=== PATIENT | female | born 1935 | race Caucasian/White ===

== ENCOUNTER → 2017-06-25 | Outpatient (CLI) | payer MEDICARE, OTHER ==
[~2017-06-25] MED LIST: AMIO200 PO; ASPI325 PO; Amiodarone HCl200 MG PO; Aspirin EC81 MG PO; CENTRUM SILVER1 EAC3 PO; Colace100 MG PO; Ester-C 500 MG1 EACH PO; FURO20 PO; LOSA50 PO; METO25ER PO; Norco 5-325 Ta1 EACH PO; OMEP20ER PO; PARO20 PO; SPIHYD PO; Toprol Xl50 MG PO; VITAMIN D32000 UNIT PO; XARELTO20 MG PO
[2017-06-25 19:24] LABS: BASOPHILS ABSOLUTE AUTO 0.03 K/mm3 (0.00-0.23); BASOPHILS PERCENT AUTO 1 % (0-2); EOSINOPHILS PERCENT AUTO 3 % (0-6); Hemoglobin 14.1 g/dL (11.5-16.0); IMMATURE GRAN ABSOLUTE AUTO 0.01 K/mm3 (0.00-0.10); IMMATURE GRAN PERCENT AUTO 0 % (0-1); LYMPHOCYTES ABSOLUTE AUTO 1.39 K/mm3 (0.84-5.20); LYMPHOCYTES PERCENT AUTO 21 % (21-46); MONOCYTES ABSOLUTE AUTO 0.36 K/mm3 (0.16-1.47); MONOCYTES PERCENT AUTO 5 % (4-13); Mean Corpuscular HGB 31.7 pg (26.0-34.0); Mean Corpuscular HGB Conc 33.6 g/dL (31.5-36.5); Mean Corpuscular Volume 94 fL (80-100); Mean Platelet Volume 10.9 fL (9.1-12.4); NEUTROPHILS ABSOLUTE AUTO 4.67 K/mm3 (1.96-9.15); NEUTROPHILS PERCENT AUTO 70 % (41-73); Platelet Count 190 K/mm3 (150-400); RDW Coefficient Variation 12.9 % (11.7-14.2); RDW Standard Deviation 44.4 fL (35.1-46.3); Red Blood Cell Count 4.45 M/mm3 (3.80-5.20); White Blood Cell Count 6.66 K/mm3 (4.00-11.30)
[2017-06-25 19:37] LABS: Alanine Aminotransfer (ALT/SGP 13 U/L (12-78); Albumin, Blood 3.6 g/dL (3.4-5.0); Alk Phos 90 U/L (50-136); Anion Gap 5 mmol/L (6-16); Aspartate Aminotrans (AST/SGOT 32 U/L (12-37); Bilirubin, Total 0.7 mg/dL (0.1-1.0); Blood Urea Nitrogen 17 mg/dL (8-24); Bun/Creatinine Ratio 25.3 (12.0-20.0); CO2, Blood 27 mmol/L (21-32); Calcium, Blood 9.2 mg/dL (8.5-10.1); Chloride, Blood 107 mmol/L (98-108); Creatinine, Blood 0.67 mg/dL (0.40-1.00); Globulin, Blood 3.5 g/dL (2.2-4.0); Glomerular Filtration Rate >60 (60-); Glucose, Blood 100 mg/dL (70-99); Potassium, Blood 4.3 mmol/L (3.5-5.5); Sodium, Blood 139 mmol/L (136-145); Total Protein, Blood 7.1 g/dL (6.4-8.2)
== END | disposition home or self-care (01) ==
LOC: LAB 14:33
PROVIDERS: Physician Assistant
DX: I48.0 Paroxysmal atrial fibrillation (principal); I10 Essential (primary) hypertension
CPT/HCPCS: 80053; 85025

== ENCOUNTER → 2017-08-25 | Outpatient (CLI) | payer MEDICARE, OTHER | END | disposition home or self-care (01) | LOC: PLD 08:11 → LAB SHORT 08:11 | DX: L57.0 Actinic keratosis (principal) | CPT/HCPCS: 88305 ==

== ENCOUNTER 2018-07-05 07:35 | Day surgery (SDC) | payer MEDICARE, OTHER ==
[~2018-07-05 07:35] MED LIST changes: +Bactrim Ds Tab1 EACH PO; +CHOL10002 PO; +DIGOX250 MCG PO; +ELIQUIS5 MG PO; +METO50ER PO
--- NOTE | 2018-07-05 08:56 | NUR ---
Ambulatory in Day Surgery. History, Chart, Medications and Allergies reviewed before start of procedure. Lungs clear T/O to Auscultation. Patient confirms NPO status and agrees with scheduled surgery. Pre-Op teaching done. Pt verbalizes understanding. Patient States Post-Procedure ride home has been arranged.
--- NOTE | 2018-07-05 09:03 | NUR ---
07/05/18 0903 Beni Lamas PATIENT DETERMINED TO BE ASA APPROPRIATE FOR PROPOFOL SEDATION PRIOR TO START OF PROCEDURE BY . 3-LEAD EKG REVIEWED WITH PHYSICIAN PRIOR TO START OF PROCEDURE.PATIENT CONFIRMS NPO STATUS AND AGREES WITH SCHEDULED PROCEDURE.History, Chart, Medications and Allergies reviewed before start of procedure.MONITOR INTACT WITH CONTINUOUS PULSE OXIMETRY AND INTERMITTENT BP.O2 VIA N/C INTACT THROUGHOUT SEDATION/PROCEDURE.HURRICAINE SPRAY TO OROPHARYX.Bite Block PlacedN
--- NOTE | 2018-07-05 10:33 | NUR ---
AT 1020 ASSUMED CARE FROM LEEANNA PARK. VSS PATIENT STATES SHE FEELS GROGGY. WANTED FRIENDS TO KNOW HOW SHE IS DOING STAFF INFORMED AND OFFERED AND STARTED PATIENT ON JUICE OF CHOICE
--- NOTE | 2018-07-05 10:48 | NUR ---
discharged witha all blonings and discharge instructions after iv dc and discharge instructions gone over with.
--- NOTE | 2018-07-09 10:27 | NUR ---
PT CALLED [facility] DEPARTMENT, THIS RN ANSWERED. PT VOICED CONCERN HER STOOL HAS BEEN BLACK FOR THE LAST FEW DAYS. STATES SHE HAD EGD AND COLONOSCOPY WITH DR ESPINOSA ThursdayJun. SHE CALLED DR VIDES AND HE IS OUT OF TOWN UNTIL THE AND HER PCP IS ON VACATION. PT STATES SHE DOES FEEL LIGHTHEADED AND HER SYSTOLIC BP IS 100. PT STATES SHE HAS AN APPOINTMENT TODAY WITH HER WRAPPER OFF FOR A SKIN CANCER REMOVAL PROCEDURE. STATES THEY CAN TAKE HER BP THERE. I ENCOURAGED PT TO DRINK FLUIDS AND IF SYMPTOMS WORSEN TO GO TO THE ER. PT DENIES SEEING ANY MAROON/RED BLOOD. I ASKED IF PT IS ON BLOOD THINNERS AND SHE TOLD ME YES, SHE IS ON ELIQUIST AND DR ESPINOSA SAID IT WAS OKAY TO RESUME AFTER HER PROCEDURE ON THURSDAY. STATES SHE NOW FEELS BETTER KNOWING THAT IS PROBABLY WHY SHE IS SEEING BLACK STOOL MULTIPLE UPPER ENDOSCOPY BIOSPIES WERE TAKEN, ONE POLYP REMOVED IN COLON. PT STATES "MAYBE I'LL HOLD OFF ON THE ELIQUIST FOR A DAY OR TWO." AGAIN, ENCOURAGED PT TO SEEK MEDICAL ATTENTION IF SYMPTOMS WORSEN.
== END 2018-07-05 22:59 | disposition home or self-care (01) ==
LOC: ORSCMMR 07:35 → ORD 09:00 → ORSCMMR 09:00
PROVIDERS: Internal Medicine Gastroenterology
PROC: 0DB68ZX Excision of Stomach, Via Natural or Artificial Opening Endoscopic, Diagnostic (ICD-10-PCS; principal; 2018-07-05 09:00)
PROC: 0DB48ZX Excision of Esophagogastric Junction, Via Natural or Artificial Opening Endoscopic, Diagnostic (ICD-10-PCS; principal; 2018-07-05 09:00)
PROC: 0DBN8ZX Excision of Sigmoid Colon, Via Natural or Artificial Opening Endoscopic, Diagnostic (ICD-10-PCS; principal; 2018-07-05 09:00)
DX: K29.70 Gastritis, unspecified, without bleeding (principal); R63.4 Abnormal weight loss; K63.5 Polyp of colon; K57.30 Diverticulosis of large intestine without perforation or abscess without bleeding; Z86.010 Personal history of colon polyps; I48.0 Paroxysmal atrial fibrillation; Z79.01 Long term (current) use of anticoagulants; Z79.899 Other long term (current) drug therapy
CPT/HCPCS: 88305; 88341; 88342; J7120

== ENCOUNTER 2018-07-12 16:48 | Observation (INO) | payer MEDICARE, OTHER ==
[~2018-07-12] VITALS: Ht 157.5 cm; Wt 54.1 kg
[2018-07-12 17:29] LABS: Source, Urine Clean Catch
[2018-07-12 17:32] LABS: BASOPHILS ABSOLUTE AUTO 0.04 K/mm3 (0.00-0.23); BASOPHILS PERCENT AUTO 1 % (0-2); EOSINOPHILS ABSOLUTE AUTO 0.18 K/mm3 (0.00-0.68); EOSINOPHILS PERCENT AUTO 3 % (0-6); Hemoglobin 11.4 g/dL (11.5-16.0); IMMATURE GRAN ABSOLUTE AUTO 0.02 K/mm3 (0.00-0.10); IMMATURE GRAN PERCENT AUTO 0 % (0-1); LYMPHOCYTES ABSOLUTE AUTO 1.97 K/mm3 (0.84-5.20); LYMPHOCYTES PERCENT AUTO 30 % (21-46); MONOCYTES ABSOLUTE AUTO 0.49 K/mm3 (0.16-1.47); MONOCYTES PERCENT AUTO 7 % (4-13); Mean Corpuscular HGB 32.7 pg (26.0-34.0); Mean Corpuscular HGB Conc 33.5 g/dL (31.5-36.5); Mean Corpuscular Volume 97 fL (80-100); Mean Platelet Volume 10.1 fL (9.1-12.4); NEUTROPHILS ABSOLUTE AUTO 3.91 K/mm3 (1.96-9.15); NEUTROPHILS PERCENT AUTO 59 % (41-73); Platelet Count 252 K/mm3 (150-400); RDW Coefficient Variation 13.4 % (11.7-14.2); RDW Standard Deviation 46.6 fL (35.1-46.3); Red Blood Cell Count 3.49 M/mm3 (3.80-5.20); White Blood Cell Count 6.61 K/mm3 (4.00-11.30)
[2018-07-12 17:37] LABS: Appearance, Urine Clear (Clear); Bilirubin, Urine Neg (Neg); Blood, Urine 1+ (Neg); Color, Urine Yellow (P-Yellow); Glucose Qualitative, Urine Neg (Neg); Ketones, Urine Neg (Neg); Leukocyte Esterase, Urine 2+ (Neg); Nitrite, Urine Neg (Neg); Protein, Urine Neg (Neg); Urobilinogen, Urine NORM (Normal)
[2018-07-12 17:52] LABS: Red Blood Cells, Urine 0-2 /hpf (0-2); Squamous Epithelial Cells Rare /hpf (Few)
[2018-07-12 17:53] LABS: Bacteria Not Seen /hpf
[2018-07-12 18:38] LABS: Alanine Aminotransfer (ALT/SGP 23 U/L (12-78); Albumin, Blood 3.5 g/dL (3.4-5.0); Alk Phos 94 U/L (50-136); Anion Gap 6 mmol/L (6-16); Aspartate Aminotrans (AST/SGOT 44 U/L (12-37); Bilirubin, Total 0.5 mg/dL (0.1-1.0); Blood Urea Nitrogen 16 mg/dL (8-24); Bun/Creatinine Ratio 17.5 (12.0-20.0); CO2, Blood 29 mmol/L (21-32); Chloride, Blood 102 mmol/L (98-108); Creatinine, Blood 0.91 mg/dL (0.40-1.00); Globulin, Blood 3.4 g/dL (2.2-4.0); Glomerular Filtration Rate >60 (60-); Glucose, Blood 123 mg/dL (70-99); Potassium, Blood 3.6 mmol/L (3.5-5.5); Sodium, Blood 137 mmol/L (136-145); Total Protein, Blood 6.9 g/dL (6.4-8.2)
[2018-07-12 22:27] LABS: Percent Saturation 17.5 % (15.0-50.0)
[2018-07-13 05:02] LABS: BASOPHILS ABSOLUTE AUTO 0.03 K/mm3 (0.00-0.23); BASOPHILS PERCENT AUTO 1 % (0-2); EOSINOPHILS ABSOLUTE AUTO 0.11 K/mm3 (0.00-0.68); EOSINOPHILS PERCENT AUTO 2 % (0-6); Hematocrit 29.4 % (33.0-51.0); Hemoglobin 9.7 g/dL (11.5-16.0); IMMATURE GRAN ABSOLUTE AUTO 0.01 K/mm3 (0.00-0.10); IMMATURE GRAN PERCENT AUTO 0 % (0-1); LYMPHOCYTES ABSOLUTE AUTO 1.86 K/mm3 (0.84-5.20); LYMPHOCYTES PERCENT AUTO 36 % (21-46); MONOCYTES ABSOLUTE AUTO 0.39 K/mm3 (0.16-1.47); MONOCYTES PERCENT AUTO 8 % (4-13); Mean Corpuscular HGB 31.5 pg (26.0-34.0); Mean Corpuscular Volume 96 fL (80-100); Mean Platelet Volume 10.1 fL (9.1-12.4); NEUTROPHILS ABSOLUTE AUTO 2.74 K/mm3 (1.96-9.15); NEUTROPHILS PERCENT AUTO 53 % (41-73); Platelet Count 165 K/mm3 (150-400); RDW Coefficient Variation 13.3 % (11.7-14.2); Red Blood Cell Count 3.08 M/mm3 (3.80-5.20); White Blood Cell Count 5.14 K/mm3 (4.00-11.30)
--- NOTE | 2018-07-13 05:37 | NUR ---
SHIFT SUMMARY 0035 RECEIVED PT TO RM 306 VIA GURNEY FROM ER. A&O, VERY PLEASANT. ABLE TO TX SELF TO BED. PT INDEPENDANT TO BTHRM UNTIL SCD'S PLACED AND IVF'S STARTED. PT CALLS FOR ASSIST D/T THOSE. PT ADMITTED FOR MELENA. RECEIVED REPORT FROM HAROLDO PARK, PT HAD A SCOPE LAST WEEK AND THEN HAD 3 BLACK STOOLS. PT REPORTED THAT SHE HAS BEEN CONSTIPATED SINCE, EVEN THOUGH TAKING MIRALAX 3 DAYS IN A ROW. PT WITH HX OF A-FIB, ON ELIQUIS; CHF, BREAST CA, AND RECURRENT UTI'S. GI CONSULT CALLED TO DR BURKS'S ANS. PT HAS BEEN UP TO BTHRM TO VOID A COUPLE OF TIMES. CALLS APPROPRIATELY. NPO PER ORDERS.
--- NOTE | 2018-07-13 12:02 | NUR ---
Pt gave me permission to assist with her care tomorrow on 07/14/2018.
--- NOTE | 2018-07-13 14:37 | NUR ---
PT GAVE PERMISSION FOR ME TO HELP TAKE CARE OF HER TOMORROW FROM 1-6 PM.
--- NOTE | 2018-07-13 15:38 | NUR ---
SHIFT SUMMARY PATIENT A&O X4, SBA TO BATHROOM. DENIES ANY PAIN, NAUSEA, OR SOB THIS SHIFT. HAS NOT HAD A BM SINCE ADMIT, DENIES ANY BLEEDING WITH URINATION. CLEAR LIQUIDS THIS AM, NPO SINCE 1200 FOR A SCHEDULED ENDOSCOPY. FAMILY IS AT THE BEDSIDE. DAY SURGERY COMING TO GET PATIENT FOR PROCEDURE NOW. P/T EVALUATED TODAY, PATIENT IS A SBA W/GB AND WALKER. PATIENT REFUSING TO USE WALKER TO GET UP. RN WILL CONTINUE TO EDUCATE PATIENT ON SAFETY AND FALL PREVENTION. BED IN LOWEST POSITION, CALL LIGHT IS WITHIN REACH. NO ACUTE CHANGES. RN WILL CONTINUE TO MONITOR.
--- NOTE | 2018-07-13 15:42 | NUR ---
INTO [facility] VIA [facility] [employer]. HISTORY AND ALLERGIES REVIEWED. NPO STATUS CONFIRMED. LUNGS WITH BIBASILAR CRACKLES. PT DENIES SOB-SATS>90% ON RA. NO ELIQUIS X 3 DAYS.
--- NOTE | 2018-07-13 16:07 | NUR ---
07/13/18 1607 Ronald Garzon PATIENT DETERMINED TO BE ASA APPROPRIATE FOR PROPOFOL SEDATION PRIOR TO START OF PROCEDURE BY DR. Dang Block Placed. 3-LEAD EKG REVIEWED WITH PHYSICIAN PRIOR TO START OF PROCEDURE.Patient to ENDO 1History, Chart, Medications and Allergies reviewed before start of procedure. MONITOR INTACT WITH CONTINUOUS PULSE OXIMETRY AND INTERMITTENT BP.O2 VIA N/C INTACT THROUGHOUT SEDATION/PROCEDURE.
--- NOTE | 2018-07-13 18:06 | NUR ---
Yolis conversation with Randy. She has a strong santosh that brings her peace. She tells me she is awaiting test this afternoon and is hoping to go home afterwards. She is trying to not worry, but admits she is "a little fearful." We spoke at length about her marriage and homelife. Randy responded well to theraputic listening, residential treatment counselor, and prayer. We had an easy rapport and I will remain available.
--- NOTE | 2018-07-14 06:13 | NUR ---
SHIFT SUMMARY PT A&O, RESTING QUIETLY AWAKE DURING SHIFT REPORT LAST NOC. PT HAD RETURNED FOR SCOPE PRIOR TO THE START OF NOC SHIFT. DR ESPINOZANG HER TO SEE PT AT START OF SHIFT. DISCUSSED DIET AND STARTING BOWEL CARE. DR BURKS NOTIFIED FOR CLARIFICATION OF ORDERS. PT TOLERATED CLEAR LIQUID DIET LAST NIGHT AND WANTED SOLID FOOD. SETTLED FOR SEVERAL JELLO AND WATER. DECLINED ANYTHING ELSE. PT WOKE THIS AM FEELING WELL. REALLY WANTS TO GET HOME TO HER . NO C/O PAIN OR NAUSEA. INDEPENDANT TO BTHRM. CALL LT IN REACH. ABLE TO MAKE NEEDS KNOWN.
[2018-07-14 08:38] LABS: Hematocrit 33.6 % (33.0-51.0); Hemoglobin 11.3 g/dL (11.5-16.0)
--- NOTE | 2018-07-14 09:24 | NUR ---
PATIENT WAS OFFERED A SHOWER BUT REFUSED DUE TO BEING DISCHARGED AND WANTED TOT KLARISSA ONE AT HOME.
[2018-07-14] MEDS ORDERED: DOCU100 PO (11:53)
[2018-07-14] MEDS ORDERED: GAVILAX17 GM PO (11:54)
[2018-07-14] MEDS ORDERED: Omeprazole20 M1 PO (11:56)
--- NOTE | 2018-07-14 13:25 | NUR ---
Randy was surrounded by family and friend. She is happy to be going home today and "they didn't find anything too troubling." Provided prayer for continued health.
--- NOTE | 2018-07-14 15:21 | NUR ---
DISCHARGE SUMMARY PATIENT A&O, INDEPENDENT IN THE ROOM. DISCHARGE INFORMATION REVIEWED INCLUDING FOLLOW UP APPOINTMENTS, MEDICATIONS, AND PATIENT EDUCATION. MEDICATIONS FAXED TO [facility]. IV D/C, WNL. PATIENT WALKED OUT, ACCOMPANIED BY HER FRIEND AND . ALL BELONGINGS IN HAND, STEADY ON HER FEET. RN ESCORTED THEM OUT.
[2018-07-15] MEDS ORDERED: HYDCHL12.5 PO (07:33)
[2018-07-15] MEDS ORDERED: ACID REDUCER20 MG PO (07:34)
[2018-07-15] MEDS ORDERED: Bactrim Ds Tab1 EACH PO (07:48)
== END 2018-07-14 12:27 | disposition home or self-care (01) ==
LOC: ER 16:48 → MEDS 16:49 → ENPENDDIS 07-14 11:02 → MEDS 07-14 12:27
PROVIDERS: Internal Medicine; Physician Assistant; Student in an Organized Health Care Education/Training Program; ADMIT Hospitalist
PROC: 0DJD8ZZ Inspection of Lower Intestinal Tract, Via Natural or Artificial Opening Endoscopic (ICD-10-PCS; principal; 2018-07-13 17:15)
PROC: 0W3P8ZZ Control Bleeding in Gastrointestinal Tract, Via Natural or Artificial Opening Endoscopic (ICD-10-PCS; principal; 2018-07-13 17:15)
DX: K29.40 Chronic atrophic gastritis without bleeding (principal); K44.9 Diaphragmatic hernia without obstruction or gangrene; K25.9 Gastric ulcer, unspecified as acute or chronic, without hemorrhage or perforation; K92.1 Melena; I48.2 Chronic atrial fibrillation; I50.32 Chronic diastolic (congestive) heart failure; N39.0 Urinary tract infection, site not specified; D64.9 Anemia, unspecified; F32.9 Major depressive disorder, single episode, unspecified; R15.0 Incomplete defecation; Z85.3 Personal history of malignant neoplasm of breast; Z88.5 Allergy status to narcotic agent; Z79.899 Other long term (current) drug therapy
CPT/HCPCS: 36415; 80053; 81001; 82272; 82728; 83540; 83550; 83690; 85014; 85018; 85025; 86900; 86901; 87086; 96372; 96374; 96376; 97110; 97116; 97162; 99285-25; C9113; G0378; J7030; J7120

== ENCOUNTER 2018-07-15 06:41 | Emergency (ER) | payer MEDICARE, OTHER ==
[~2018-07-15] VITALS: Ht 160 cm; Wt 52.6 kg
[~2018-07-15 06:41] MED LIST changes: +DOCU100 PO; +GAVILAX17 GM PO; +Omeprazole20 M1 PO
[2018-07-15 07:04] LABS: BASOPHILS ABSOLUTE AUTO 0.03 K/mm3 (0.00-0.23); BASOPHILS PERCENT AUTO 0 % (0-2); EOSINOPHILS ABSOLUTE AUTO 0.04 K/mm3 (0.00-0.68); EOSINOPHILS PERCENT AUTO 1 % (0-6); Hemoglobin 12.6 g/dL (11.5-16.0); IMMATURE GRAN ABSOLUTE AUTO 0.05 K/mm3 (0.00-0.10); IMMATURE GRAN PERCENT AUTO 1 % (0-1); LYMPHOCYTES ABSOLUTE AUTO 1.03 K/mm3 (0.84-5.20); LYMPHOCYTES PERCENT AUTO 12 % (21-46); MONOCYTES ABSOLUTE AUTO 0.33 K/mm3 (0.16-1.47); MONOCYTES PERCENT AUTO 4 % (4-13); Mean Corpuscular HGB 32.3 pg (26.0-34.0); Mean Corpuscular HGB Conc 33.2 g/dL (31.5-36.5); Mean Corpuscular Volume 97 fL (80-100); Mean Platelet Volume 9.8 fL (9.1-12.4); NEUTROPHILS ABSOLUTE AUTO 7.23 K/mm3 (1.96-9.15); NEUTROPHILS PERCENT AUTO 83 % (41-73); Platelet Count 248 K/mm3 (150-400); RDW Coefficient Variation 13.7 % (11.7-14.2); RDW Standard Deviation 48.2 fL (35.1-46.3); White Blood Cell Count 8.71 K/mm3 (4.00-11.30)
[2018-07-15 07:10] LABS: Calcium, Ionized (POC) 1.13 mmol/L (1.10-1.46); Chloride (POC) 102 mmol/L (98-108); Creatinine (POC) 0.7 mg/dL (0.6-1.0); Glucose (ISTAT POC) 148 mg/dL (70-99); Hemoglobin (POC) 11.6 g/dL (12.0-16.0); Potassium (POC) 3.9 mmol/L (3.5-5.5); Sodium (POC) 143 mmol/L (135-148); Total CO2 (POC) 27 mmol/L (21-32)
[2018-07-15 07:17] LABS: International Normalized Ratio 1.1; Prothrombin Time Results 11.6 Sec (9.7-11.5)
[2018-07-15 07:27] LABS: Alanine Aminotransfer (ALT/SGP 16 U/L (12-78); Albumin, Blood 3.7 g/dL (3.4-5.0); Albumin/Globulin Ratio 1.1 (0.8-1.8); Alk Phos 85 U/L (50-136); Anion Gap 8 mmol/L (6-16); Aspartate Aminotrans (AST/SGOT 34 U/L (12-37); Bilirubin, Total 0.5 mg/dL (0.1-1.0); Blood Urea Nitrogen 13 mg/dL (8-24); Bun/Creatinine Ratio 17.5 (12.0-20.0); CO2, Blood 27 mmol/L (21-32); Calcium, Blood 8.5 mg/dL (8.5-10.1); Chloride, Blood 108 mmol/L (98-108); Creatinine, Blood 0.74 mg/dL (0.40-1.00); Globulin, Blood 3.4 g/dL (2.2-4.0); Glomerular Filtration Rate >60 (60-); Glucose, Blood 147 mg/dL (70-99); Potassium, Blood 3.8 mmol/L (3.5-5.5); Sodium, Blood 143 mmol/L (136-145); Total Protein, Blood 7.1 g/dL (6.4-8.2); Troponin I <0.015 ng/mL (0.000-0.040)
[2018-07-15] MEDS ORDERED: HYDCHL12.5 PO (07:33)
[2018-07-15] MEDS ORDERED: ACID REDUCER20 MG PO (07:34)
[2018-07-15] MEDS ORDERED: Bactrim Ds Tab1 EACH PO (07:48)
== END 2018-07-15 08:36 | disposition short-term general hospital (02) ==
LOC: ER 06:41
PROVIDERS: Emergency Medicine
DX: I63.9 Cerebral infarction, unspecified (principal); I10 Essential (primary) hypertension; I48.91 Unspecified atrial fibrillation; Z88.5 Allergy status to narcotic agent; Z79.899 Other long term (current) drug therapy; Z79.01 Long term (current) use of anticoagulants
CPT/HCPCS: 36415; 70450; 70496; 80047; 80053; 84484; 85014; 85025; 85610; 85730; 93005; 93010; 99285-25; Q9967

== ENCOUNTER 2018-10-11 13:43 | Inpatient (IN) | payer MEDICARE, OTHER ==
[~2018-10-11] VITALS: Ht 162.6 cm; Wt 51.2 kg
[~2018-10-11 13:43] MED LIST changes: +ACET500ER; +ACID REDUCER20 MG PO; +ACYC800 PO; +ATOR10 PO; +CLOP75 PO; +DIGOX125 MCG PO; +FAMO20 PO; +HYDCHL12.5 PO
[2018-10-11 14:46] LABS: BASOPHILS ABSOLUTE AUTO 0.04 K/mm3 (0.00-0.23); BASOPHILS PERCENT AUTO 0 % (0-2); EOSINOPHILS PERCENT AUTO 3 % (0-6); Hematocrit 40.1 % (33.0-51.0); Hemoglobin 13.3 g/dL (11.5-16.0); IMMATURE GRAN ABSOLUTE AUTO 0.03 K/mm3 (0.00-0.10); IMMATURE GRAN PERCENT AUTO 0 % (0-1); LYMPHOCYTES ABSOLUTE AUTO 1.52 K/mm3 (0.84-5.20); LYMPHOCYTES PERCENT AUTO 17 % (21-46); MONOCYTES ABSOLUTE AUTO 0.69 K/mm3 (0.16-1.47); MONOCYTES PERCENT AUTO 8 % (4-13); Mean Corpuscular HGB 31.2 pg (26.0-34.0); Mean Corpuscular HGB Conc 33.2 g/dL (31.5-36.5); Mean Corpuscular Volume 94 fL (80-100); NEUTROPHILS PERCENT AUTO 71 % (41-73); Platelet Count 300 K/mm3 (150-400); RDW Coefficient Variation 13.2 % (11.7-14.2); RDW Standard Deviation 45.1 fL (35.1-46.3); Red Blood Cell Count 4.26 M/mm3 (3.80-5.20); White Blood Cell Count 8.98 K/mm3 (4.00-11.30)
[2018-10-11 14:59] LABS: International Normalized Ratio 1.15
[2018-10-11 15:04] LABS: Alanine Aminotransfer (ALT/SGP 23 U/L (12-78); Albumin, Blood 3.1 g/dL (3.4-5.0); Albumin/Globulin Ratio 0.8 (0.8-1.8); Alk Phos 122 U/L (50-136); Anion Gap 7 mmol/L (6-16); Aspartate Aminotrans (AST/SGOT 49 U/L (12-37); Bilirubin, Total 0.8 mg/dL (0.1-1.0); Blood Urea Nitrogen 14 mg/dL (8-24); Bun/Creatinine Ratio 26.8 (12.0-20.0); CO2, Blood 29 mmol/L (21-32); Calcium, Blood 9.2 mg/dL (8.5-10.1); Chloride, Blood 101 mmol/L (98-108); Creatinine, Blood 0.52 mg/dL (0.40-1.00); Globulin, Blood 4.1 g/dL (2.2-4.0); Glomerular Filtration Rate >60 (60-); Glucose, Blood 116 mg/dL (70-99); Potassium, Blood 3.4 mmol/L (3.5-5.5); Sodium, Blood 137 mmol/L (136-145); Total Protein, Blood 7.2 g/dL (6.4-8.2)
[2018-10-11] MEDS ORDERED: ELIQUIS5 MG PO (15:49)
[2018-10-11] MEDS ORDERED: CRANBERRY450 MG PO (17:01)
[2018-10-11] MEDS ORDERED: ESTRADIOL VAG (17:05)
[2018-10-11] MEDS ORDERED: Ferrous Sulfat325 M2 PO (17:06)
[2018-10-11] MEDS ORDERED: THERA1 EACH PO (17:07)
[2018-10-11] MEDS ORDERED: Florastor250 MG PO (17:07)
[2018-10-11] MEDS ORDERED: Senna-Docusate1 EACH PO (17:08)
[2018-10-11] MEDS ORDERED: ACET325 PO (17:09)
[2018-10-11] MEDS ORDERED: HYDRA25 PO (17:10)
[2018-10-11] MEDS ORDERED: BISA10S PR (17:11)
[2018-10-11] MEDS ORDERED: CVS DISPOSABLE399 ML PR (17:11)
[2018-10-11] MEDS ORDERED: Milk Of Ma400 MG/5 M PO (17:12)
[2018-10-11] MEDS ORDERED: MELA3 PO (17:18)
--- NOTE | 2018-10-11 19:20 | NUR ---
Initial Visit: Palliative Care Consult for Advanced Care Planning. Pt is resting in bed and is unresponsive. Pt's Mustapha, Grandson Marek (KASEY), and Coery's Mone are present during visit. Pt appears comfortable with no signs of distress at this time. Engaged in therapeutic conversation regarding Advanced Care Planning. Listened as Marek expressed frustrations regarding care Pt received from SNF. Marek reports this is Pt's seconds stroke. Marek reports Pt's rehabilitation was going well until this hospitalization. Pt was improving with her mobility but was still requiring assistance with ambulation, bathing, and dressing. She was also receiving therapy for her swallowing difficulty. Marek reports Pt is of Cheondoism santosh and lives at home with her . Marek expresses concerns regarding no family or friends having the ability to help with care for Pt and Pt's . Marek reports Pt's Mustapha is also having health issues. Mustapha is a and served in [place]. Marek would like assistance with placing Pt and Pt's in the same facility. Marek also completes a new POLST. Wishes of family are for Pt to be a DNR, limited treatment, and no tube feedings. Following scores are based off Pt's current condition not baseline PPS 10% Karnofsky 30% ADLs 6/ Spoke with Pt's bedside nurse Cholo regarding new POLST and family concerns. Cholo reports no other concerns at this time. Plan: Placed social service consult regarding assistance with placement for both Pt and . Left message on resident caregiver voicemail regarding family concerns. Faxed copy of POA to medical records. Will obtain copy of new POLST upon hospitalist signature. Will remain available
--- NOTE | 2018-10-11 19:45 | NUR ---
SHIFT SUMMARY: PT WAS ABLE TO RESPOND TO PAINFUL STIMULI WITH SPONTANIOUS EYE MOVEMENT. SHE IS INCONT W/ATTENDS IN PLACE. CODE STATUS CLARIFIED WITH AND FAMILY. DNR BAND PLACED ON R WRIST. PALLIATIVE CARE TO THE ROOM, NEW POLST FILLED OUT. POLST NEEDS TO BE SIGNED BY PHYSICIAN. NOC RN NOTIFIED. NO S/SX OF PAIN NOTED AT THIS TIME. RESP E/U.
[2018-10-12 04:48] LABS: Hematocrit 37.7 % (33.0-51.0); Hemoglobin 12.3 g/dL (11.5-16.0); Mean Corpuscular HGB 30.7 pg (26.0-34.0); Mean Corpuscular HGB Conc 32.6 g/dL (31.5-36.5); Mean Corpuscular Volume 94 fL (80-100); Mean Platelet Volume 9.8 fL (9.1-12.4); Platelet Count 245 K/mm3 (150-400); RDW Coefficient Variation 12.9 % (11.7-14.2); RDW Standard Deviation 44.8 fL (35.1-46.3); Red Blood Cell Count 4.01 M/mm3 (3.80-5.20); White Blood Cell Count 8.48 K/mm3 (4.00-11.30)
[2018-10-12 05:07] LABS: Anion Gap 6 mmol/L (6-16); Blood Urea Nitrogen 14 mg/dL (8-24); Bun/Creatinine Ratio 24.3 (12.0-20.0); CHOL/HDL RATIO 2.9; CO2, Blood 31 mmol/L (21-32); Calcium, Blood 9.1 mg/dL (8.5-10.1); Chloride, Blood 103 mmol/L (98-108); Cholesterol 102 mg/dL (50-200); Creatinine, Blood 0.58 mg/dL (0.40-1.00); Glomerular Filtration Rate >60 (60-); Glucose, Blood 99 mg/dL (70-99); HDL Cholesterol 35 mg/dL (>39); LDL/HDL RATIO 1.3; Low Density Lipoprotein Chol 45 mg/dL (0-110); Potassium, Blood 3.1 mmol/L (3.5-5.5); Sodium, Blood 140 mmol/L (136-145); Triglycerides 109 mg/dL (30-160); Very Low Density Lipoprot Chol 21 mg/dL (6-32)
--- NOTE | 2018-10-12 07:44 | NUR ---
10/12/18 0600 VITALS STABLE. NON-VERBAL. SLEEPING MOST OF SHIFT WITHOUT APPARENT DISCOMFORT OR DISTRESS. SUCTIONED SEVERAL TIMES DUE TO SECRETIONS IN MOUTH AND DROOLING ON BED LINENS. REPOSITIONED Q 2 HOURS WITH TOTAL ASSIST. ORAL AND JENNIFER-CARE GIVEN WITH EACH TURN. MEPILEX DRESSINGS TO PINK HEELS AT START OF SHIFT.
--- NOTE | 2018-10-12 13:42 | NUR ---
Echocardiogram completed.
--- NOTE | 2018-10-12 14:46 | NUR ---
Spiritual care visit conducted. Patient's nurse requested a spiritual care visit upon approval of the family. Patient's spouse, Mustapha and grandson, Clyde are bedside. I asked family about patient and I learned about her perez discipline but also her artistic and adventurous side. I provided soft therapeutic guitar music, a calming presence and prayer. The family voiced appreciation.
--- NOTE | 2018-10-12 15:01 | NUR ---
Rec'd a call from [facility] that pt is now on comfort care and grandson Clyde would like to complete a new POLST form. Visited with Clyde in her room. Explained comfort care and filled out a new POLST form. Clyde has met with Dr. Montilla and with social security specialist. Spoke with Dr. Montilla and she requested that this marketing writer place comfort care orders. Dr. Montilla signed POLST form. POLST faxed to MR and to [place] POLST registry.
--- NOTE | 2018-10-12 16:23 | NUR ---
MEDICATED PT PRIOR TO REPOSITIONING AND ATTENDS CHANGE. SHE IS PAINFUL WITH ANY MOVEMENT.
--- NOTE | 2018-10-12 18:21 | NUR ---
Per admit trigger, I attempted to meet with pt/family regarding an Advanced directive. Per physician's note, Mrs. Pierre is being trasitioned to comfort Measures Only. No family present at time of visit. Mrs. Pierre appears non-verbal and appeared to have trouble focusing. I noticed she is listed as Tenriism. Therefore, I prayed to Lord's Prayer and a prayer for God's tatiana. I will remain available to pt and family.
--- NOTE | 2018-10-12 18:40 | NUR ---
NO S/SX OF DISTRESS AT THIS TIME. ATTENDS CHANGED. REPOSITIONED TO HER RIGHT SIDE.
--- NOTE | 2018-10-12 18:41 | NUR ---
SHIFT SUMMARY: PT TRANSITIONED TO COMFORT CARE. MAURISIO KELLEY (KASEY) MET WITH CARE MANAGEMENT ABOUT PLACING PT AT A FACILITY FOR HOSPICE CARE. PALLIATIVE CARE TO ROOM, NEW POLST COMPLETED FOR COMFORT CARE STATUS. TELE D/C'D AND SENT BACK. 5 MCG OF ROXINOL USED PRIOR TO REPOSITIONING.
--- NOTE | 2018-10-12 19:30 | NUR ---
PT IS OBSERVED TO RESTING QUIETLY IN BED. FAMILY AT THE BEDSIDE, NO COMPLAINTS AT THIS TIME. WILL CONTINUE TO MONITOR.
--- NOTE | 2018-10-13 06:31 | NUR ---
VSS, AFEBRILE, NON-RESPONSIVE ALL NOC, SLEEPING DEEPLY, DOES NOT OPEN HER EYES FOR ANY NOISE OR CHANGE OF POSITION. FAMILY WAS HERE IN THE EARLY PART OF THE SHIFT, BUT DID NOT STAY ALL NIGHT. AND FAMILY ARE GRIEVING. WILL REPORT TO ON-COMING SHIFT.
--- NOTE | 2018-10-13 07:38 | NUR ---
PT RESTING IN BED OPENS EYES TO VERBAL STIMULI. WHEN ASKED HOW SHE WAS DOING THIS AM THE PT WISPERED "FINE", PT APEARS COMFORTABLE AT THIS TIME DENIED PAIN, A WARM BLANKET WAS GIVEN
--- NOTE | 2018-10-13 10:43 | NUR ---
PT REPOSITIONED, APPEARS TO BE COMFORTABLE, FRIENDS IN TO SEE THE PT THIS AM OFF AND ON
--- NOTE | 2018-10-13 18:40 | NUR ---
PT APPEARED COMFORTABLE AT THIS TIME, FAMILY WAS IN TO SEE THE PT EARLIER IN THE DAY, WILL CONTINUE TO MONITOR FOR CHANGES
--- NOTE | 2018-10-13 18:42 | NUR ---
PT APPEARS COMFORTABLE AT THIS TIME EYES OPEN BREATHS EVEN UNLABORED, THE PT WAS CHANGED AND REPOSITIONED, FRIEND IN TO SEE THE PT CALL LIGHT IN REACH
--- NOTE | 2018-10-13 19:27 | NUR ---
VSS, AFEBRILE, PT OBSERVED TO BE LYING IN BED W/EYES OPEN. PT MADE DIRECT EYE CONTACT DURING CHANGE OF SHIFT. IT IS UNCLEAR HOW MUCH SHE UNDERSTANDS BUT SHE APPEARS TO BE SOMEWHAT MORE LUCID, ALTHOUGH STILL LARGELY NON-VERBAL. WILL CONTINUE TO MONITOR.
--- NOTE | 2018-10-14 05:19 | NUR ---
VSS, AFEBRILE, NON-VERBAL, PT SLEPT WELL, NO COMPLAINTS, NO SIGNIFICANT CHANGES NOTED, CONTINUES TO BE COMFORT CARE. WILL REPORT TO ON-COMING SHIFT.
--- NOTE | 2018-10-14 13:32 | NUR ---
Pt visit this afternoon. Pt is resting in bed and appears comfortable. Pt is non verbal but shakes her head with answering questions. Asked if Pt is in pain and she shakes her head side to side indicating no pain. Asked if she is comfortable and Pt shakes her head up and down indicating yes. Pt has visitor outside of room. Her name is Dee Be and is requesting information. She reports that she has been friends with her for a long time. Instructed Dee permission from pam (KASEY) will need to be granted. Instructed Dee this RN will call grandson. Called and spoke with Pt's grandson Marek (KASEY) and he denies permission to give Dee information. Called and spoke with Pt's bedside nurse Ervin regarding grandson's denial of information to be given to Dee. Ervin reports no other concerns. Will remain available.
--- NOTE | 2018-10-14 17:10 | NUR ---
SHIFT SUMMARY- PT ABLE TO NOD FOR YES AND SHAKE HEAD FOR NO THIS AM. PT NONVERBAL THIS SHIFT. PT DENIES PAIN. DENIES N/V. DENIES SOB. RESP E/U ON RA. TURNS Q2H. FAMILY FRIEND IN TO VISIT PT THIS AFTERNOON. NO OTHER SIGNIFICANT CHANGES THIS SHIFT.
--- NOTE | 2018-10-14 19:16 | NUR ---
VSS, AFEBRILE, PT OBSERVED TO BE RESTING IN HER BED, SNORING SOFTLY IN RAPID SHALLOW BREATHS. NO COMPLAINTS AT THIS TIME. WILL CONTINUE TO MONITOR.
--- NOTE | 2018-10-15 05:09 | NUR ---
VSS, AFEBRILE, PT SLEPT ALL SHIFT, SNORING IN SHALLOW BREATHS, NO COMPLAINTS, NO SIGNIFICANT CHANGES NOTED, WILL REPORT TO ON-COMINGS SHIFT.
--- NOTE | 2018-10-15 08:31 | NUR ---
APPEARS IN NO DISTRESS; EXPIRATION GREATER THAN INHALATION. NO SIGNS OF PAIN DURING TURNS AND ATTENDS CHANGE. OPENS EYES TO VERBAL/TACTILE STIMULI.
--- NOTE | 2018-10-15 14:30 | NUR ---
PT APPEARS IN NO PAIN OR DISTRESS. RR 35-40. ATTENDS IN PLACE. TURNED Q2. FRIEND AT BEDSIDE.
--- NOTE | 2018-10-15 14:31 | NUR ---
RR 40-45; BLANKETS REMOVED. REPOSITIONED OFF BONY PROMINENCES. ORAL CARE GIVEN.
--- NOTE | 2018-10-15 18:38 | NUR ---
SHIFT SUMMARY PT RR 40-45. DOES NOT OPEN EYES WITH INTERVENTIONS. MOUTH CARE GIVEN. FRIEND IN FOR VISIT. INCONTINENT; ATTENDS IN PLACE. REPOSITIONED OFF BONY PROMINENCES.
--- NOTE | 2018-10-15 20:43 | NUR ---
PT REPOSITIONED/TURNED TURNED TO LEFT SIDE, ATTENDS DRY, RR 48, PT IS WARM TO TOUCH, EXTRA BLANKETS REMOVED. PT SOUNDING WET/GURGLY IN BACK OF THROAT, GAVE ATROPINE PER ORDERS.
--- NOTE | 2018-10-15 22:43 | NUR ---
CHANGE IN BREATHING PT HAVING PERIODS OF APNEA, APPEARS COMFORTABLE, DID NOT REPOSITION AT THIS TIME.
--- NOTE | 2018-10-15 23:01 | NUR ---
*LATE ENTRY* PT PASSED AROUND 2244. WARREN ROBERTO (FAMILY) NOTIFIED @2254, THEY STATED THEY WILL BE AT HOSPITAL IN 5-10MINUTES. I WILL NOTIFY HOSPITALIST.
--- NOTE | 2018-10-15 23:56 | NUR ---
Spiritual care visit conducted. Upon receiving a request for air traffic controller services, I responded for comfort and helping with the grieving process for the patient's family. I encouraged story telling about the patient, explored families ideas of and the afterlife, recited scripture and provided a prayer for the family and an after prayer for the patient. Family responded well and appeared to be grieving tearfully and appropriately.
== END 2018-10-15 22:45 | DRG 65 ==
LOC: ER 13:43 → MEDS 15:28
PROVIDERS: Emergency Medicine; ADMIT Internal Medicine
DX: I63.312 Cerebral infarction due to thrombosis of left middle cerebral artery (principal); I50.32 Chronic diastolic (congestive) heart failure; I69.354 Hemiplegia and hemiparesis following cerebral infarction affecting left non-dominant side; I48.2 Chronic atrial fibrillation; F32.9 Major depressive disorder, single episode, unspecified; I69.391 Dysphagia following cerebral infarction; R13.10 Dysphagia, unspecified; Z85.3 Personal history of malignant neoplasm of breast; Z87.440 Personal history of urinary (tract) infections; Z66 Do not resuscitate; Z51.5 Encounter for palliative care; K29.00 Acute gastritis without bleeding; G47.00 Insomnia, unspecified; E87.6 Hypokalemia; Z91.81 History of falling
CPT/HCPCS: 36415; 70450; 70496; 80048; 80053; 80061; 83036; 85025; 85027; 85610; 85730; 92610; 93005; 93010; 93306; 99285-25; Q9967